=== PATIENT | female | born 1945 | race African-American/Black ===

== ENCOUNTER → 2016-12-21 | Outpatient (CLI) | payer OTHER | LOC: RAD 00:38 | DX: Z12.31 Encounter for screening mammogram for malignant neoplasm of breast (principal) ==

== ENCOUNTER → 2018-08-29 | Outpatient (CLI) | payer OTHER | LOC: RAD 12:00 | DX: Z12.31 Encounter for screening mammogram for malignant neoplasm of breast (principal) ==

== ENCOUNTER → 2019-08-31 | Outpatient (CLI) | payer OTHER | LOC: RAD 09:10 | PROVIDERS: ATTEND Obstetrics & Gynecology | DX: Z12.31 Encounter for screening mammogram for malignant neoplasm of breast (principal) ==

== ENCOUNTER → 2020-09-01 | Outpatient (CLI) | payer OTHER | LOC: BC 09:21 | PROVIDERS: ATTEND Obstetrics & Gynecology | DX: Z12.31 Encounter for screening mammogram for malignant neoplasm of breast (principal) ==